=== PATIENT | female | born 1940 | race Caucasian/White ===

== ENCOUNTER → 2019-11-18 09:37 | Outpatient (CLI) | payer MEDICARE, SELFPAY ==
--- NOTE | ~2019-11-18 | CT_ITS ---
EXAMINATION: CT abdomen pelvis w con DATE: 11/18/2019 10:45 INDICATION: Palpable abdominal mass. Abnormal abdominal ultrasound examination. TECHNIQUE: Computed tomography (CT) of the abdomen and pelvis was performed with 100 cc Omnipaque 350 intravenous contrast. Automated exposure control and iterative reconstruction technique were employe d. Exam dose: 583.30 mGy-cm total exam DLP. COMPARISON: 05/18/2017 CT right lower extremity 05/22/2018 left hip FINDINGS: Status post sternotomy. Old left rib fractures. Cardiomegaly. Right atrial and right ventricular pacemaker leads. No pericardial effusion. Mild atelectasis in the lower lung zones, predominately the dependent lower lobes and lingula. Calcif ied right lower lobe pulmonary granuloma. Hepatic steatosis. No suspicious hepatic space-occupying mass lesion or splenic mass lesion. There ar e couple of probable small splenic cysts. There are numerous calcified stone granulomas consistent wi th old granulomatous disease. The pancreatic body and tail are not visualized. The pancreatic neck, h ead and uncinate process are unremarkable. The gallbladder is present with mild thickening of the gal lbladder wall. No bile duct or pancreatic duct dilatation. No adrenal mass lesion. Nonspecific 8 mm peripheral wedge-shaped area of diminished enhancement of the lateral aspect of the upper pole of the left kidney Similar much smaller posterior mid renal hypoenhancing lesion is noted in each kidney. These are too small to definitively characterize. No urinary tract calculus or hydroureteronephrosis is detected. There is emphysematous change of the anterior wall of the urinary bladder, suggesting emphysematous c ystitis. Status post hysterectomy. There is a 2.8 cm x 2.1 cm cystic lesion in the right adnexal area, likely of ovarian origin; consider pelvic ultrasound for further evaluation in this postmenopausal patient. There is extensive atherosclerotic calcification of the abdominal aorta and iliac arteries but no ane urysm. Normal appendix. There is a prominent amount of fecal material in the colon. No bowel obstruction or intraperitoneal free air is evident. Multiple chronic calcifications are again noted at the base of the urinary bladder/proximal urethra. There are couple of clips of the anterior abdominal wall. Fat-containing left ventral abdominal wall hernia and a Bilateral fat-containing anterior pelvic wall hernias are noted. Old fracture deformities of the left inferior pubic ramus and left ischium. Osteoarthritis of left hip Status post right total hip arthroplasty. IMPRESSION: Cardiomegaly Hepatic steatosis Nonspecific 8 mm and smaller diminished enhancing lesions of the kidneys Emphysematous cystitis Status post hysterectomy 2.8 x 2.1 cm cystic lesion in the right adnexal area; recommend pelvic ultrasound examination for fur ther evaluation in this postmenopausal patient Multiple chronic calcifications at the base the urinary bladder/proximal urethra Ventral abdominal and pelvic wall fat-containing hernias Reviewed, dictated and finalized at [facility]. Reviewed, dictated and finalized at [facility]. [employer] [employer] [facility] IMPRESSION: Cardiomegaly Hepatic steatosis Nonspecific 8 mm and smaller diminished enhancing lesions of the kidneys Emphysematous cystitis Status post hysterectomy 2.8 x 2.1 cm cystic lesion in the right adnexal area; recommend pelvic ultrasou nd examination for further evaluation in this postmenopausal patient Multiple chronic calcifications at the base the urinary bladder/proximal urethr a Ventral abdominal and pelvic wall fat-containing hernias
[2019-11-18 10:32] LABS: Blood Urea Nitrogen 33 mg/dL (8-26); Estimated Glomerular Filt Rate 39
== END ==
PROVIDERS: Visit Provider Emergency Medicine
DX: R93.5 Abnormal findings on diagnostic imaging of other abdominal regions, including retroperitoneum (principal); R19.00 Intra-abdominal and pelvic swelling, mass and lump, unspecified site; K43.9 Ventral hernia without obstruction or gangrene; N28.89 Other specified disorders of kidney and ureter
CPT/HCPCS: 74177; Q9967

== ENCOUNTER 2022-11-21 10:26 | Outpatient (CLI) | payer MEDICARE, SELFPAY ==
[2022-11-21 11:58] LABS: Hematocrit 37.8 % (37.0-47.0); Hemoglobin 11.2 g/dL (12.0-15.0)
[2022-11-21 12:06] LABS: Anion Gap 6 mmol/L (8-16); Blood Urea Nitrogen 26 mg/dL (7-17); Carbon Dioxide 28 mmol/L (22-30); Chloride 105 mmol/L (98-107); Estimated Glomerular Filt Rate 43; Glucose 65 mg/dL (65-110); Potassium 4.5 mmol/L (3.4-5.0); Sodium 139 mmol/L (137-145)
== END 2022-11-21 10:27 | disposition home or self-care (01) ==
LOC: ANHSURGERY 10:31
PROVIDERS: Anesthesiology; PCP Internal Medicine; Visit Provider Urology
DX: D64.9 Anemia, unspecified (principal); E11.9 Type 2 diabetes mellitus without complications; N36.42 Intrinsic sphincter deficiency (ISD); Z01.818 Encounter for other preprocedural examination
CPT/HCPCS: 36415; 80048; 85014; 85018; 87077; 87086; 87186

== ENCOUNTER 2022-11-28 01:24 | Day surgery (SDC) | payer MEDICARE, SELFPAY ==
[2022-11-11 15:46] VITALS: BMI 23.3
--- NOTE | 2022-11-11 16:21 | PC.NURSE ---
PRE-OP INSTRUCTIONS, PLEASE READ CAREFULLY Report to the Outpatient Waiting Room, entrance under the green pavilion located off [facility], at time _1230_ on date _11/28/22_. Planned Procedure Time: _2:30 PM_. Time changes happen often and if your time is changed the preop area will call you the afternoon before. - You and your visitor will be asked to self-screen and do not enter if you have any COVID symptoms. - Only one visitor is requested with a max of two and NO children visitors are allowed at this time. - The patient visitor may be requested to leave or wait in car when not with patient due to distancing restrictions. - A mask is optional within the hospital at this time. Patients may have clear liquids (water, carbonated beverages, clear teas, apple juice) until 3 hours prior to surgery (1130 AM) with a maximum of 20 ounces. - No food from midnight until time of surgery Take the following medications with a SIP of water the morning of surgery: _DILTIAZEM, HYDRALAZINE, LEVOTHYROXINE, METOPROLOL, ADVAIR INHALER_ DO NOT STOP ANY OF YOUR OTHER PRESCRIPTION MEDICATIONS PRIOR TO SURGERY ?EXCEPT THE FOLLOWING Medications to discontinue per DR. GARCIA - _ASPIRIN, VITAMINS 7 DAYS PRIOR TO SURGERY, Date to take last dose 11/20/22_ Medications to discontinue per ANESTHESIA - _PROBIOTIC 3 DAYS PRIOR TO SURGERY, Date to take last dose 11/24/22_ Please no make-up, nail english, hairspray, perfume, deodorant, or body powder the day of surgery. No jewelry (including any body piercings) or valuables the day of surgery, leave them at home. Please take a shower or bath the night before, or the morning of, surgery with an antibacterial soap. Wear comfortable, loose fitting clothing. - Jewelry must be removed prior to entering the operating room. Rings and piercings that are not removed may be cut off. - The hospital will not accept responsibility for valuables. - Please leave all valuables, including medications, at home the day of surgery. If you are going home after surgery, a licensed driver's license examiner must drive you home. - NO public transportation without another adult if you receive anesthesia. - We recommend that an adult stay with you for 24 hours following discharge. - We also recommend that you do not drive, make important decision, drink alcoholic beverages, or take any drugs that were not prescribed by your health care provider for at least 24 hours after your discharge time. Follow any additional instructions given to you from your surgeon. If you or anyone in your household have experienced Covid symptoms in the past week, please notify your surgeon or the nurse liaison at the phone number below for possible testing. Telephone instructions given to _PATIENT__and asked if any additional questions and then verbalized understanding. Patient advised to call surgeon office or pre surgery nurse liaison [phone] if any additional questions.
--- NOTE | 2022-11-25 08:14 | PM.IMHP ---
H&P: HPI History of Present Illness Date/Time: 11/25/22 08:14 Chief Complaint: intrinsic sphincter deficiency Narrative: 82-year-old with mixed incontinence. She is on medications for overactive bladder. She has had multiple stress incontinence procedures including a Ortega-Xin as well as a bulking agent 2010. She is here for repeat bulking agent Review of Systems Review of Systems: All systems reviewed & are unremarkable except as noted in HPI and below PMFSH Past Medical History Medical History Atrial fibrillation Debility Diabetes Restless leg syndrome Sick sinus syndrome Surgical History Surgical History History of mitral valve repair Family History Family History Other Diabetes mellitus Family history of arthritis Hypertension Social History Social History Smoking status: Never smoker Second hand tobacco smoke exposure: No Alcohol intake: never Substance use: never Substance use type: does not use Living arrangements: with family Spiritual care concerns: No Meds Home Medications and Allergies Home Medications Medication Instructions Recorded Confirmed Type hydralazine 100 mg tablet 100 mg PO TID 11/03/21 11/11/22 History levothyroxine 150 mcg tablet 150 mcg PO DAILY 11/03/21 11/11/22 History (Synthroid) metoprolol succinate 100 mg PO DAILY 11/03/21 11/11/22 History ropinirole 1 mg tablet 1.5 mg PO HS 11/03/21 11/11/22 History rosuvastatin 10 mg tablet 10 mg PO DAILY 11/03/21 11/11/22 History venlafaxine 150 mg 150 mg PO HS 11/05/21 11/11/22 History capsule,extended release 24 hr aspirin 81 mg chewable tablet 81 mg PO DAILY@0800 #0 tabs 11/15/21 11/11/22 Rx (Children's Aspirin) diltiazem HCl 60 mg tablet 30 mg PO BID #60 tabs 11/15/21 11/11/22 Rx glimepiride 1 mg tablet (Amaryl) 1 mg PO DAILY@0800 #30 tabs 11/15/21 11/11/22 Rx metformin 500 mg tablet 500 mg PO DAILY #30 tabs 11/15/21 11/11/22 Rx tamsulosin 0.4 mg capsule 0.4 mg PO BEDTIME #30 caps 11/15/21 11/11/22 Rx Probiotic 1 tab-cap DAILY 11/11/22 11/11/22 History cyanocobalamin (vitamin B-12) 1,000 mcg PO DAILY 11/11/22 11/11/22 History 1,000 mcg capsule ferrous sulfate 325 mg (65 mg 325 mg PO BID 11/11/22 11/11/22 History iron) tablet,delayed release fluticasone 250 mcg-salmeterol 50 1 inh inhalation BID 11/11/22 11/11/22 History mcg/dose blistr powdr for inhalation (Advair Diskus) fluticasone propionate 50 1 spray intranasal DAILY 11/11/22 11/11/22 History mcg/actuation nasal spray,suspension (Flonase Allergy Relief) furosemide 20 mg tablet 20 mg 3XW 11/11/22 11/11/22 History multivitamin 1 tablet PO DAILY 11/11/22 11/11/22 History spironolactone 25 mg tablet 12.5 mg PO DAILY 11/11/22 11/11/22 History Allergies Allergy/AdvReac Type Severity Reaction Status Date / Time levofloxacin Allergy Intermediate ELEVATED Verified 11/11/22 15:25 BLOOD PRESSURE Penicillins Allergy Intermediate RASH Verified 11/11/22 15:25 Sulfa (Sulfonamide Allergy Intermediate ELEVATED Verified 11/11/22 15:25 Antibiotics) BLOOD PRESSURE Contrast Media Allergy Intermediate HIVES Uncoded 11/11/22 15:25 PROPOXYPHENE NAPSYLATE Allergy Intermediate ELEVATED Uncoded 11/11/22 15:25 BLOOD PRESSURE Exam Narrative: no acute distress fixed urethra alert orient x3 Assessment and Plan Assessment and plan (1) Intrinsic sphincter deficiency (ISD): Code(s): N36.42 - Intrinsic sphincter deficiency (ISD) Status: Acute Assessment and Plan: cystoscopy with bulking agent. Understands risks of bleeding, infection, lack of efficacy, need for repeat procedures. We discussed the success rates. She agrees to proceed
--- NOTE | 2022-11-28 07:13 | WPDHPUPDATE1 ---
History and Physical Update Update Date/Time: 11/28/22 07:13 History and Physical has been reviewed, including an updated exam of the patient. There are NO changes in the patient's condition. Risks, benefits, and alternatives have been discussed and questions answered. Patient agrees to proceed with procedure.
[2022-11-28] MEDS: LACTATED RINGERS 1,000 ML 30 ML IV CONT (13:02)
[2022-11-28 13:03] LABS: Glucose Point of Care 94 mg/dl (65-105)
[2022-11-28 13:04] VITALS: BP 154/62; PULSE 70; RESP 16; TEMP 36.4; O2SAT 99
--- NOTE | 2022-11-28 13:42 | WPDANESEPPF ---
Anes - Initial Pre Proc Eval Procedure: Operation Date: 11/28/22 14:30 Proposed Procedures p Cystoscopy with Injection Bulking Agent - Kwame Eckert MD Date/Time: 11/28/22 13:42 Surgeon: Kwame Eckert MD Pre Op Diagnosis: intrinsic sphincter deficiency Patient Data Age: 82 Gender: F Height: 1.7 m Weight: 64.4 kg Last Vital Signs Temp 97.6 F 11/28/22 13:04 Pulse 70 11/28/22 13:04 Resp 16 11/28/22 13:04 BP 154/62 H 11/28/22 13:04 Pulse Ox 99 11/28/22 13:04 O2 Del Method Room Air 11/28/22 13:04 Allergies Allergy/AdvReac Type Severity Reaction Status Date / Time Iodinated Contrast Media Allergy Intermediate Hives Verified 11/28/22 13:08 levofloxacin Allergy Intermediate ELEVATED Verified 11/28/22 13:08 BLOOD PRESSURE Penicillins Allergy Intermediate RASH Verified 11/28/22 13:08 Sulfa (Sulfonamide Allergy Intermediate ELEVATED Verified 11/28/22 13:08 Antibiotics) BLOOD PRESSURE Contrast Media Allergy Intermediate HIVES Uncoded 11/28/22 13:08 PROPOXYPHENE NAPSYLATE Allergy Intermediate ELEVATED Uncoded 11/28/22 13:08 BLOOD PRESSURE Home Medications Medication Instructions Recorded Confirmed Type hydralazine 100 mg tablet 100 mg PO TID 11/03/21 11/28/22 History levothyroxine 150 mcg tablet 150 mcg PO DAILY 11/03/21 11/28/22 History (Synthroid) metoprolol succinate 100 mg PO DAILY 11/03/21 11/28/22 History ropinirole 1 mg tablet 1.5 mg PO HS 11/03/21 11/11/22 History rosuvastatin 10 mg tablet 10 mg PO DAILY 11/03/21 11/11/22 History venlafaxine 150 mg 150 mg PO HS 11/05/21 11/11/22 History capsule,extended release 24 hr aspirin 81 mg chewable tablet 81 mg PO DAILY@0800 #0 tabs 11/15/21 11/11/22 Rx (Children's Aspirin) diltiazem HCl 60 mg tablet 30 mg PO BID #60 tabs 11/15/21 11/28/22 Rx glimepiride 1 mg tablet (Amaryl) 1 mg PO DAILY@0800 #30 tabs 11/15/21 11/28/22 Rx metformin 500 mg tablet 500 mg PO DAILY #30 tabs 11/15/21 11/11/22 Rx tamsulosin 0.4 mg capsule 0.4 mg PO BEDTIME #30 caps 11/15/21 11/11/22 Rx Probiotic 1 tab-cap DAILY 11/11/22 11/28/22 History cyanocobalamin (vitamin B-12) 1,000 mcg PO DAILY 11/11/22 11/28/22 History 1,000 mcg capsule ferrous sulfate 325 mg (65 mg 325 mg PO BID 11/11/22 11/28/22 History iron) tablet,delayed release fluticasone 250 mcg-salmeterol 50 1 inh inhalation BID 11/11/22 11/11/22 History mcg/dose blistr powdr for inhalation (Advair Diskus) fluticasone propionate 50 1 spray intranasal DAILY 11/11/22 11/11/22 History mcg/actuation nasal spray,suspension (Flonase Allergy Relief) furosemide 20 mg tablet 20 mg 3XW 11/11/22 11/11/22 History multivitamin 1 tablet PO DAILY 11/11/22 11/28/22 History spironolactone 25 mg tablet 12.5 mg PO DAILY 11/11/22 11/11/22 History Laboratory Tests 11/28/22 12:51 POC Capillary Glucose 94 mg/dl mg/dl (65-105) Patient hx anesthesia problems: none Family hx anesthesia problems: none Results Review: All pre-operative results and documents have been reviewed as part of the pre-operative evaluation. [facility] Past Medical History Medical History Atrial fibrillation Debility Diabetes Restless leg syndrome Sick sinus syndrome Surgical History Surgical History History of mitral valve repair Family History Family History Other Diabetes mellitus Family history of arthritis Hypertension Social History Social History Smoking status: Never smoker Second hand tobacco smoke exposure: No Alcohol intake: never Substance use: never Substance use type: does not use Living arrangements: with family Spiritual care concerns: No Anes - Eval Final PreProcedure Day of Procedure 11/28/22 13:
[2022-11-28] MEDS: ceFAZolin 2 GM/D5W 50 ML 2 GM/50 ML BAG IVPB (14:16)
[2022-11-28] MEDS: LIDOCAINE HCL 2% GEL UROJET 10 ML PKG MUCOUS MEM (14:23)
--- NOTE | 2022-11-28 14:38 | W.PM.PROC2 ---
Procedure Note - Detailed Date of Procedure 11/28/22 Pre-op Diagnosis intrinsic sphincter deficiency Post-op Diagnosis Same Procedure Performed Cystoscopy with suburethral injection of implant material [id number] Surgeon Kwame Eckert MD Anesthesia MAC Indications This is a patient with stress urinary incontinence due to intrinsic sphincter deficiency. They desires surgical correction. They understand the risk of bleeding, and infection, lack of efficacy, need for repeat procedures, obstructive voiding requiring catheterization. They agreed to proceed. She understands would not help her urge incontinence symptoms. We discussed reported success rates and need for repeat procedures Findings Open urethra consistent with intrinsic sphincter deficiency Description of Procedure The patient was correctly identified and informed consent was obtained. They were brought to the operating room. They were given MAC anesthesia. They were placed in the dorsal lithotomy position. They were prepped and draped in a sterile fashion. A time-out performed. Cystoscopy revealed no tumors in the bladder and an open urethra consistent with intrinsic sphincter deficiency. I chose a site 2 cm distal to bladder neck. I injected my bulking agent circumferentially forming several pillows. I used 1-1/2 syringe total. There was excellent bulking effect. The bladder was left partially full.They were awakened and transferred to the PACU in stable condition. Implants Urethral bulking agent Estimated Blood Loss 1 Drains No Packing No Pathology None sent Complications No immediate complications Condition Stable Disposition PACU
[2022-11-28 14:41] VITALS: BP 112/55; PULSE 69; RESP 14; O2SAT 95
[2022-11-28 14:45] VITALS: BP 122/66; PULSE 70; RESP 16; O2SAT 92
[2022-11-28 15:15] VITALS: BP 115/85; PULSE 70; RESP 14
[2022-11-28 15:40] VITALS: BP 143/55; PULSE 70; RESP 16
== END 2022-11-28 15:45 | disposition home or self-care (01) ==
PROVIDERS: PCP Internal Medicine; Visit Provider Urology
PROC: 3E0K8GC Introduction of Other Therapeutic Substance into Genitourinary Tract, Via Natural or Artificial Opening Endoscopic (ICD-10-PCS; CPT 51715; principal; 2022-11-28 14:30)
DX: N36.42 Intrinsic sphincter deficiency (ISD) (principal); I48.91 Unspecified atrial fibrillation; E11.9 Type 2 diabetes mellitus without complications; G25.81 Restless legs syndrome; Z79.82 Long term (current) use of aspirin; Z79.84 Long term (current) use of oral hypoglycemic drugs
CPT/HCPCS: 51715; 82948; J0690; J2405; J2704; J3010; J7120; L8606